=== PATIENT | female | born 1970 | race Asian ===

== ENCOUNTER 2016-05-12 15:18 | Outpatient (CLI) | payer BC ==
--- NOTE | 2016-05-13 15:30 | Mammography Report ---
BILATERAL DIGITAL SCREENING MAMMOGRAM with CAD: 05/12/16 15:18:00 CLINICAL: Routine screening. COMPARISON:03/29/12 FINDINGS: The breasts are almost entirely fatty. No mass, architectural distortion or suspicious calcifications. IMPRESSION: No mammographic evidence of malignancy. BI-RADS CATEGORY: 1 - - Negative RECOMMENDATION: Routine mammographic screening in one year. COMMENT: Patient follow-up letters are generated by our [employer] application.
== END 2016-05-12 15:19 | disposition home or self-care (01) ==
LOC: SPVWC 15:18
PROVIDERS: ATTEND Family Medicine
DX: Z12.31 Encounter for screening mammogram for malignant neoplasm of breast (principal)
CPT/HCPCS: 77067; G0202